=== PATIENT | female | born 1970 | race Caucasian/White ===

== ENCOUNTER 2016-05-22 07:59 | Emergency (ER) | payer SELFPAY ==
[~2016-05-22] VITALS: Ht 162.6 cm; Wt 80.0 kg
[2016-05-22 08:05] VITALS: BP 147/94; PULSE 112; RESP 24; TEMP 98.9; O2SAT 92
[2016-05-22 08:25] VITALS: BP 139/71; PULSE 110; RESP 24; TEMP 98.9; O2SAT 95
[2016-05-22] MEDS ORDERED: PLAQ200T PO (08:25)
[2016-05-22] MEDS ORDERED: TRAZ50TA12 PO (08:25)
[2016-05-22] MEDS ORDERED: ALBU.5I NEB (08:25)
--- NOTE | 2016-05-22 08:27 | PD ---
HPI Chief Complaint: Respiratory Symptoms Time Seen by Provider: 08:18 Travel History International Travel<30 days: No Contact w/Intl Traveler<30days: No Traveled to known affect area: No History of Present Illness HPI 46-year-old female complains of coughing congestion and shortness of breath. Patient states the symptoms started several weeks ago and it was for the past several days. Patient has history COPD. Patient is a smoker. Patient has been using nebulizer treatment at home. Patient states the cough is persistent and productive. Patient feeling sweaty and hot and cold at home. Patient denies any headache. Patient denies any ear ache or sore throat. Patient denies abdominal pain. Patient denies any nausea vomiting diarrhea. PFSH Past Medical History Asthma: Yes Autoimmune Disease: Yes (lupus) COPD: Yes Diminished Hearing: No Influenza Vaccination: No ?: Not Social History Alcohol Use: No Tobacco Use: Yes Allergies-Medications (Allergen,Severity, Reaction): Coded Allergies: Penicillin (Verified Allergy, Severe, Anaphylaxis, 05/22/16) Codeine (Verified Allergy, Unknown, 05/22/16) Reported Meds & Prescriptions Reported Meds & Active Scripts Active Reported Albuterol Neb (Albuterol Sulfate) 2.5 Mg/0.5 Ml Neb 2.5 Mg NEB Q6HR NEB Note: The Albuterol Sulfate Inhalation Solution is concentrated and must be diluted. Read complete instructions carefully before using. Plaquenil (Hydroxychloroquine Sulfate) 200 Mg Tab 400 Mg PO DAILY Take with food Trazodone (Trazodone HCl) 50 Mg Tab 50 Mg PO HS Review of Systems General / Constitutional: No: Fever Eyes: No: Visual changes HENT: No: Headaches Cardiovascular: No: Chest Pain or Discomfort Respiratory: Positive: Cough, Shortness of Breath Gastrointestinal: No: Abdominal Pain Genitourinary: No: Dysuria Musculoskeletal: No: Pain Skin: No Rash Neurologic: No: Weakness Psychiatric: No: Depression Endocrine: No: Polydipsia Hematologic/Lymphatic: No: Easy Bruising Physical Exam Narrative GENERAL: Well-nourished, well-developed patient. SKIN: Focused skin assessment warm/dry. HEAD: Normocephalic. EYES: No scleral icterus. No injection or drainage. TM: Clear. Throat: Nonerythematous. NECK: Supple, trachea midline. No JVD or lymphadenopathy. CARDIOVASCULAR: Regular rate and rhythm without murmurs, gallops, or rubs. RESPIRATORY: Patient has artery expiratory wheezes bilaterally. Few rhonchi at the bases. GASTROINTESTINAL: Abdomen soft, non-tender, nondistended. MUSCULOSKELETAL: No cyanosis, or edema. BACK: Nontender without obvious deformity. No CVA tenderness. Neurologic exam normal. Data Data Last Documented VS Vital Signs Date Time Temp Pulse Resp B/P Pulse Ox O2 Delivery O2 Flow Rate FiO2 05/22/16 08:25 98.9 110 24 139/71 95 Room Air Orders Chest, Single Ap (05/22/16 08:23) Albuterol-Ipratropium Neb (Duoneb Neb) (05/22/16 08:30) Dexamethasone Inj (Decadron Inj) (05/22/16 08:30) MDM Medical Decision Making Medical Screen Exam Complete: Yes Emergency Medical Condition: Yes Interpretation(s) Last Impressions Chest X-Ray 05/22/16822 Signed Impressions: Service Date/Time: Sunday, May 22, 2016 08:42 - CONCLUSION: No acute disease. Claudio Glass MD FACR Differential Diagnosis Differential diagnosis including acute exacerbation of COPD, bronchitis, pneumonia, PE, pneumothorax. Narrative Course 46-year-old female with coughing congestion and wheezing and shortness of breath. History of COPD. Albuterol with Atrovent unit dose treatment 3. Decadron 8 mg IM. 9:03 AM. Reexamination patient is feeling much better. Mild expiratory wheezes. Diagnosis Primary Impression: COPD with acute exacerbation Patient Instructions: General Instructions Additional Instructions: Continue with albuterol as needed. Follow-up with personal physician. Stop smoking. Return if worse. Med/Other Pt SpecificInfo: Prescription(s) given Scripts Azithromycin (Zithromax Z-Dioni)250 Mg [id number] Mg PO DIRECTED #1 DSPK 500 MG (2 tabs) day 1, then 1 tab days 2-5. Prov:Ryan Grider MD 05/22/16 Prednisone 20 Mg Tab20 Mg PO BID #10 TAB Prov:Ryan Grider MD 05/22/16 Ipratropium Neb 0.5 Mg/2.5 Ml Amp0.5 Mg NEB Q4HR NEB #60 NEBULE Prov:Ryan Grider MD 05/22/16 Albuterol Neb 2.5 Mg/3 Ml Neb2.5 Mg NEB Q4HR NEB #60 NEBULE While awake Prov:Ryan Grider MD 05/22/16 Albuterol 8.5 GM Inh (Proair Hfa 8.5 GM Inh)90 Mcg/Act Aer2 Puff INH Q4-6H PRN ( SHORTNESS OF BREATH) #1 INHALER 108 mcg/actuation Prov:Ryan Grider MD 05/22/16 Disposition: 01 DISCHARGE HOME Condition: Stable Ryan Grider MD May 22, 2016 08:27
[2016-05-22] MEDS ORDERED: DEXAMETHASONE SOD PHOS 4 MG/ML VIAL IM ONE (08:30)
[2016-05-22] MEDS: RESP: ALBUTEROL 2.5 MG/IPRATROPIUM 0.5 MG NEB (SCH) INH (08:31)
--- NOTE | 2016-05-22 08:56 | RADHPO ---
EXAM DATE/TIME: 05/22/2016 08:42 [facility] COMPARISON: No previous studies available for comparison. INDICATIONS : Short of breath. MEDICAL HISTORY : Chronic obstructive pulmonary disease. Lupus. Asthma. SURGICAL HISTORY : None. ENCOUNTER: Initial ACUITY: 2 weeks PAIN SCORE: 0/10 LOCATION: chest FINDINGS: A single view of the chest demonstrates the lungs to be symmetrically aerated without evidence of mas s, infiltrate or effusion. The cardiomediastinal contours are unremarkable. Osseous structures are intact. CONCLUSION: No acute disease. Claudio Glass MD FACR on May 22, 2016 at 8:53 Board Certified Radiologist. This report was verified electronically.
[2016-05-22] MEDS ORDERED: PRED20 PO (09:05)
[2016-05-22] MEDS ORDERED: ZITHTAB PO (09:05)
[2016-05-22] MEDS ORDERED: IPRA0.02 NEB (09:05)
[2016-05-22] MEDS ORDERED: ALBU0.08 NEB (09:05)
[2016-05-22] MEDS ORDERED: ALBUAER3 INH (09:05)
== END 2016-05-22 09:18 | disposition home or self-care (01) ==
LOC: PHED 07:59
DX: J44.1 Chronic obstructive pulmonary disease with (acute) exacerbation (principal); J45.909 Unspecified asthma, uncomplicated; M32.9 Systemic lupus erythematosus, unspecified; Z72.0 Tobacco use
CPT/HCPCS: 71010; 94640; 94664; 96372; 99284; J1100

== ENCOUNTER 2016-12-23 07:03 | Emergency (ER) | payer SELFPAY ==
[~2016-12-23] VITALS: Ht 162.6 cm; Wt 81.0 kg
[~2016-12-23 07:03] MED LIST: ALBU.5I NEB; ALBU0.08 NEB; ALBUAER3 INH; IPRA0.02 NEB; PLAQ200T PO; PRED20 PO; TRAZ50TA12 PO; ZITHTAB PO
[2016-12-23 07:10] VITALS: BP 162/74; PULSE 98; RESP 22; TEMP 98; O2SAT 92
[2016-12-23] MEDS ORDERED: methylPREDNISolone SOD SUCC 125 MG/2 ML VIAL IV PUSH ONE (07:15)
[2016-12-23] MEDS ORDERED: PRED20 PO (07:18)
[2016-12-23] MEDS ORDERED: ZITHTAB PO (07:18)
--- NOTE | 2016-12-23 07:18 | PD ---
HPI Chief Complaint: Respiratory Symptoms Time Seen by Provider: 07:09 Travel History International Travel<30 days: No Contact w/Intl Traveler<30days: No History of Present Illness HPI 46 yo F c/o shortness of breath increasing for past two weeks after mukund URI from daughter. + hx COPD. + smoking now. nebulizers at home minimally helpful. + pleuritic chest pain. + cough. pt denies fever. PFSH Past Medical History Asthma: Yes Autoimmune Disease: Yes (lupus) COPD: Yes Diminished Hearing: No Respiratory: Yes (COPD) ?: Not Social History Alcohol Use: No Tobacco Use: Yes Allergies-Medications (Allergen,Severity, Reaction): Coded Allergies: penicillin G (Unverified Allergy, Severe, Anaphylaxis, 12/23/16) codeine (Unverified Allergy, Unknown, 12/23/16) Reported Meds & Prescriptions Reported Meds & Active Scripts Active Albuterol Neb (Albuterol Sulfate) 2.5 Mg/0.5 Ml Neb 2.5 Mg NEB Q6HR NEB Note: The Albuterol Sulfate Inhalation Solution is concentrated and must be diluted. Read complete instructions carefully before using. Prednisone 20 Mg Tab 20 Mg PO BID Zithromax Z-Dioni (Azithromycin) 250 Mg Dspk 250 Mg PO DIRECTED 500 MG (2 tabs) day 1, then 1 tab days 2-5. Proair Hfa 8.5 GM Inh (Albuterol Sulfate) 90 Mcg/Act Aer 2 Puff INH Q4-6H PRN 108 mcg/actuation Review of Systems Except as stated in HPI: all other systems reviewed are Neg General / Constitutional: No: Fever Cardiovascular: Positive: Chest Pain or Discomfort Respiratory: Positive: Cough, Shortness of Breath, Wheezing Physical Exam Narrative GENERAL: 46 yo F, WNWD, NAD SKIN: Warm and dry. HEAD: Atraumatic. Normocephalic. EYES: Pupils equal and round. No scleral icterus. No injection or drainage. ENT: No nasal bleeding or discharge. Mucous membranes pink and moist. NECK: Trachea midline. No JVD. CARDIOVASCULAR: Tachycardia approx 95. Regular. RESPIRATORY: No accessory muscle use. Clear to auscultation. Breath sounds equal bilaterally. GASTROINTESTINAL: Abdomen soft, non-tender, nondistended. Hepatic and splenic margins not palpable. MUSCULOSKELETAL: Extremities without clubbing, cyanosis, or edema. No obvious deformities. NEUROLOGICAL: Awake and alert. No obvious cranial nerve deficits. Motor grossly within normal limits. Five out of 5 muscle strength in the arms and legs. Normal speech. PSYCHIATRIC: Appropriate mood and affect; insight and judgment normal. Data Data Last Documented VS Vital Signs Date Time Temp Pulse Resp B/P (MAP) Pulse Ox O2 Delivery O2 Flow Rate FiO2 12/23/16 09:10 12/23/16 08:09 87 20 93 Room Air 12/23/16 07:31 98.2 VS reviewed Orders Orders Iv Access Insert/Monitor (12/23/16 07:11) Electrocardiogram (12/23/16 07:11) Ecg Monitoring (12/23/16 07:11) Oximetry (12/23/16 07:11) Oxygen Administration (12/23/16 07:11) Chest, Single Ap (12/23/16 07:11) Sodium Chloride 0.9% Flush (Ns Flush) (12/23/16 07:15) Methylprednisolone So Succ Inj (Solumedr (12/23/16 07:15) Albuterol-Ipratropium Neb (Duoneb Neb) (12/23/16 07:15) Albuterol Neb (Albuterol Neb) (12/23/16 08:15) Sodium Chlor 0.9% 1000 Ml Inj (Ns 1000 M (12/23/16 08:15) Ed Discharge Order (12/23/16 08:58) MDM Medical Decision Making Medical Screen Exam Complete: Yes Emergency Medical Condition: Yes Medical Record Reviewed: Yes Differential Diagnosis COPD w exacerbation, asthma, PTX, PNA, PE Narrative Course EKG: sinus, rate 94, normal axis, normal intervals CXR: NACPD Pt has hx COPD w acute exacerbations. Three rounds Duoneb administered with subjective improvement reported Pt ambulated around pod shortly thereafter. Wheezing with desat to 88% on RA observed. Three additional albuterol nebs ordered. Pt ambulated around the pod shortly thereafter again without difficulty and o2 sat of 94% on RA observed. Pleuritic cp considered unlikely to be PE given similar prior episodes of COPD exacerbation. Diagnosis Primary Impression: COPD with acute exacerbation Med/Other Pt SpecificInfo: Prescription(s) given Scripts Albuterol Neb (Albuterol Neb) 2.5 Mg/0.5 Ml Neb 2.5 MG NEB Q6HR NEB, #30 BOX Note: The Albuterol Sulfate Inhalation Solution is concentrated and must be diluted. Read complete instructions carefully before using. Prov: Primitivo Cannon MD 12/23/16 Prednisone (Prednisone) 20 Mg Tab 20 MG PO BID, #10 TAB Prov: Primitivo Cannon MD 12/23/16 Azithromycin (Zithromax Z-Dioni) 250 Mg Dspk 250 MG PO DIRECTED for Infection, #1 DSPK 500 MG (2 tabs) day 1, then 1 tab days 2-5. Prov: Primitivo Cannon MD 12/23/16 Disposition: 01 DISCHARGE HOME Condition: Stable Primitivo Cannon MD Dec 23, 2016 07:18
[2016-12-23] MEDS: RESP: ALBUTEROL 2.5 MG/IPRATROPIUM 0.5 MG NEB (SCH) INH (07:19)
[2016-12-23 07:27] VITALS: O2SAT 92
[2016-12-23] MEDS: SODIUM CHLORIDE 0.9% FLUSH 10 ML FLUSH IVF PRN ×2 (07:30→08:15)
[2016-12-23 07:31] VITALS: BP 138/65; PULSE 93; RESP 20; TEMP 98.2; O2SAT 93
[2016-12-23 08:09] VITALS: BP 136/75; PULSE 87; RESP 20; O2SAT 93
[2016-12-23] MEDS ORDERED: SODIUM CHLOR 0.9% 1000 ML INJ 1,000 ML IV ONE (08:15)
[2016-12-23] MEDS: RESP: ALBUTEROL 2.5 MG/3 ML NEB (SCH) INH (08:15)
--- NOTE | 2016-12-23 08:38 | RADRPT ---
EXAM DATE/TIME: 12/23/2016 07:40 [facility] COMPARISON: CHEST SINGLE AP, May 22, 2016, 8:42. INDICATIONS : Short of breath, fever, cough, chest pain with deep inspiration and cough MEDICAL HISTORY : Chronic obstructive pulmonary disease. Lupus. asthma SURGICAL HISTORY : None. ENCOUNTER: Initial ACUITY: 1 week PAIN SCORE: 6/10 LOCATION: Bilateral chest FINDINGS: A single view of the chest demonstrates the lungs to be symmetrically aerated without evidence of mas s, infiltrate or effusion. The cardiomediastinal contours are unremarkable. Osseous structures are intact. CONCLUSION: 1. No acute cardiopulmonary disease. Nghia Sapp MD on December 23, 2016 at 8:35 Board Certified Radiologist. This report was verified electronically.
[2016-12-23] MEDS ORDERED: ALBU.5I NEB (09:01)
--- NOTE | 2016-12-24 08:46 | EKG ---
Date Performed: 12/23/2016 Time Performed: 07:12:56 PTAGE: 46 years EKG: Sinus rhythm NORMAL ECG INTERPRETATION BASED ON A DEFAULT AGE OF 41 YEARS NO PREVIOUS TRACING DOCTOR: Grant Avendaño Interpretating Date/Time 12/24/2016 08:44:24
== END 2016-12-23 09:16 | disposition home or self-care (01) ==
LOC: PHED 07:03
DX: J44.1 Chronic obstructive pulmonary disease with (acute) exacerbation (principal); Z72.0 Tobacco use
CPT/HCPCS: 71010; 93005; 94640; 94664; 96361; 96374; 96375; 99285; J2930; J7030; J7613

== ENCOUNTER 2017-03-16 22:04 | Inpatient (IN) | payer SELFPAY ==
[~2017-03-16] VITALS: Ht 167.6 cm; Wt 86.0 kg
[~2017-03-16 22:04] MED LIST changes: -ALBU0.08 NEB; -IPRA0.02 NEB; -PLAQ200T PO; -TRAZ50TA12 PO
[2017-03-16 22:10] VITALS: BP 144/90; PULSE 115; RESP 30; TEMP 98.4; O2SAT 88
[2017-03-16] MEDS ORDERED: RESP: ALBUTEROL 2.5 MG/IPRATROPIUM 0.5 MG NEB (PRN) ONE (22:10)
[2017-03-16] MEDS ORDERED: RESP: ALBUTEROL 2.5 MG/IPRATROPIUM 0.5 MG NEB (SCH) ONE (22:10)
--- NOTE | 2017-03-16 22:11 | PD ---
HPI Chief Complaint: shortness of breath Time Seen by Provider: 22:09 Travel History International Travel<30 days: No Contact w/Intl Traveler<30days: No Traveled to known affect area: No History of Present Illness HPI 47-year-old female came to the emergency room with history of shortness of breath that started this morning. His history of COPD and asthma. She took her inhalers but says that that did not help her at all. When she came in she was acutely short of breath and her oxygen saturation was 88% on room air. She does not require oxygen at home. No history of fever or chills. No history of chest pain. She was tachycardic. Patient is a smoker. [facility] Past Medical History Narrative Medical List of her past medical, surgical, social and family history is reviewed from the nursing note. Asthma: Yes Autoimmune Disease: Yes (lupus) COPD: Yes Diminished Hearing: No Respiratory: Yes (COPD) Social History Alcohol Use: No Tobacco Use: Yes (1PPD) Substance Use: No Allergies-Medications (Allergen,Severity, Reaction): Coded Allergies: penicillin G (Unverified Allergy, Severe, Anaphylaxis, 12/23/16) codeine (Unverified Allergy, Unknown, 12/23/16) Comments List of her allergies reviewed from the nursing note. Reported Meds & Prescriptions Reported Meds & Active Scripts Active Albuterol Neb (Albuterol Sulfate) 2.5 Mg/0.5 Ml Neb 2.5 Mg NEB Q6HR NEB Note: The Albuterol Sulfate Inhalation Solution is concentrated and must be diluted. Read complete instructions carefully before using. Proair Hfa 8.5 GM Inh (Albuterol Sulfate) 90 Mcg/Act Aer 2 Puff INH Q4-6H PRN 108 mcg/actuation Reported Trazodone (Trazodone HCl) 100 Mg Tablet 100 Mg PO HS Narrative Medication List of her home medications reviewed from the nursing note. Review of Systems Except as stated in HPI: all other systems reviewed are Neg Respiratory: Positive: Shortness of Breath Physical Exam Narrative GENERAL: Awake, alert, significant distress SKIN: Focused skin assessment warm/dry. HEAD: Atraumatic. Normocephalic. EYES: Pupils equal and round. No scleral icterus. No injection or drainage. ENT: No nasal bleeding or discharge. Mucous membranes pink and moist. NECK: Trachea midline. No JVD. CARDIOVASCULAR: Regular rate and rhythm. No murmur appreciated. RESPIRATORY: Decreased air entry bilaterally. Accessory muscles use for respiration GASTROINTESTINAL: Abdomen soft, non-tender, nondistended. Hepatic and splenic margins not palpable. MUSCULOSKELETAL: No obvious deformities. No clubbing. No cyanosis. No edema. NEUROLOGICAL: Awake and alert. No obvious cranial nerve deficits. Motor grossly within normal limits. Normal speech. PSYCHIATRIC: Appropriate mood and affect; insight and judgment normal. Data Data Last Documented VS Vital Signs Date Time Temp Pulse Resp B/P (MAP) Pulse Ox O2 Delivery O2 Flow Rate FiO2 03/16/17 23:21 98.5 114 25 142/83 (102) 95 Nasal Cannula 2.00 Orders Orders Electrocardiogram (03/16/17 22:09) Basic Metabolic Panel (Bmp) (03/16/17 22:09) Complete Blood Count With Diff (03/16/17 22:09) Chest, Single Ap (03/16/17 22:09) Ecg Monitoring (03/16/17 22:09) Iv Access Insert/Monitor (03/16/17 22:09) Oximetry (03/16/17 22:09) Oxygen Administration (03/16/17 22:09) Methylprednisolone So Succ Inj (Solumedr (03/16/17 22:15) Albuterol-Ipratropium Neb (Duoneb Neb) (03/16/17 22:15) Sodium Chloride 0.9% Flush (Ns Flush) (03/16/17 22:15) Albuterol-Ipratropium Neb (Duoneb Neb) (03/16/17 22:10) Albuterol-Ipratropium Neb (Duoneb Neb) (03/16/17 22:10) Albuterol Neb (Albuterol Neb) (03/16/17 22:45) Acetaminophen (Tylenol) (03/16/17 23:15) Methylprednisolone So Succ Inj (Solumedr (03/17/17 06:00) Budeson-Formot 160-4.5 Mcg Inh (Symbicor (03/17/17 09:00) Albuterol-Ipratropium Neb (Duoneb Neb) (03/17/17 08:00) Albuterol-Ipratropium Neb (Duoneb Neb) (03/17/17 00:00) Admit To Inpatient (03/16/17 ) Vital Signs (Adult) Q4H (03/16/17 23:53) Activity Oob Ad [place] (03/16/17 23:53) Diet Regular Basic (03/17/17 Breakfast) Sodium Chloride 0.9% Flush (Ns Flush) (03/17/17 00:00) Sodium Chloride 0.9% Flush (Ns Flush) (03/17/17 09:00) Ondansetron Inj (Zofran Inj) (03/17/17 00:00) Comprehensive Metabolic Panel (03/17/17 06:00) Complete Blood Count With Diff (03/17/17 06:00) Scd Bilateral/Knee High JADA.BID (03/16/17 23:53) Scott Bilateral/Knee High JADA.QSHIFT (03/16/17 23:55) Acetaminophen (Tylenol) (03/17/17 00:00) Morphine Inj (Morphine Inj) (03/17/17 00:00) Docusate Sodium-Senna (Bethany-Colace) (03/17/17 09:00) Magnesium Hydroxide Liq (Milk Of Magnesi (03/17/17 00:00) Sennosides (Senokot) (03/17/17 00:00) Bisacodyl Supp (Dulcolax Supp) (03/17/17 00:00) Lactulose Liq (Lactulose Liq) (03/17/17 00:00) Inpatient Certification (03/16/17 ) Admit Order (Ed Use Only) (03/16/17 23:57) Labs Laboratory Tests Test 03/16/17 22:30 White Blood Count 12.6 TH/MM3 Red Blood Count 4.79 MIL/MM3 Hemoglobin 15.0 GM/DL Hematocrit 46.2 % Mean Corpuscular Volume 96.5 FL Mean Corpuscular Hemoglobin 31.4 PG Mean Corpuscular Hemoglobin Concent 32.5 % Red Cell Distribution Width 13.4 % Platelet Count 366 TH/MM3 Mean Platelet Volume 7.4 FL Neutrophils (%) (Auto) 55.5 % Lymphocytes (%) (Auto) 19.1 % Monocytes (%) (Auto) 7.5 % Eosinophils (%) (Auto) 13.5 % Basophils (%) (Auto) 4.4 % Neutrophils # (Auto) 7.0 TH/MM3 Lymphocytes # (Auto) 2.4 TH/MM3 Monocytes # (Auto) 0.9 TH/MM3 Eosinophils # (Auto) 1.7 TH/MM3 Basophils # (Auto) 0.6 TH/MM3 CBC Comment DIFF FINAL Differential Comment Blood Urea Nitrogen 19 MG/DL Creatinine 1.20 MG/DL Random Glucose 112 MG/DL Calcium Level 8.6 MG/DL Sodium Level 139 MEQ/L Potassium Level 3.9 MEQ/L Chloride Level 104 MEQ/L Carbon Dioxide Level 27.6 MEQ/L Anion Gap 7 MEQ/L Estimat Glomerular Filtration Rate 48 ML/MIN MDM Medical Decision Making Medical Screen Exam Complete: Yes Emergency Medical Condition: Yes Medical Record Reviewed: Yes Interpretation(s) Twelve-lead EKG was reviewed by me. Normal sinus rhythm, normal axis, nonspecific ST-T wave changes, tachycardia. Heart rate of 121 bpm. Differential Diagnosis Status asthmaticus, pneumonia, acute COPD exacerbation Narrative Course 11:20 PM patient was given 3 DuoNeb sent IV Solu-Medrol as soon as she got into the emergency room. I went back and reassessed her and she was still wheezing. I have ordered for 3 to draw nebulizer. I would reassess her in a bit. 11:46 PM after reassessment patient is still wheezing. I have discussed with her that she should be admitted. Awaiting for the hospitalist to call back. Labs and chest x-ray are within normal limit Critical Care Narrative Aggregate critical care time was 45 minutes. Time to perform other separately billable procedures was not included in the critical care time. My time did not include minutes spent treating any other patients simultaneously or on activities that did not directly contribute to the patient's treatment. The services I provided to this patient were to treat and/or prevent clinically significant deterioration that could result in: Status asthmaticus, multiple bronchodilator treatments I provided critical care services requiring my management, as noted below: Chart data review, documentation time, medication orders and management, vital sign assessments/reviewing monitor data, ordering and reviewing lab tests, ordering and interpreting/reviewing x-rays and diagnostic studies, care of the patient and discussion of the patient with the admitting physicians. Procedures EKG Prior to Arrival: No Diagnosis Primary Impression: Status asthmaticus Qualified Codes: J45.52 - Severe persistent asthma with status asthmaticus Additional Impression: Hypoxia Admitting Information Admitting Physician Requests: Admit Pro,Shravanti R. MD Mar 16, 2017 22:10
[2017-03-16] MEDS: RESP: ALBUTEROL 2.5 MG/IPRATROPIUM 0.5 MG NEB (SCH) INH ×3 (22:13→22:29)
[2017-03-16 22:14] VITALS: O2SAT 88
[2017-03-16] MEDS ORDERED: SODIUM CHLORIDE 0.9% FLUSH 10 ML FLUSH IVF PRN (22:15)
[2017-03-16] MEDS ORDERED: methylPREDNISolone SOD SUCC 125 MG/2 ML VIAL IV PUSH ONE (22:15)
[2017-03-16 22:35] LABS: BASOPHIL # 0.6 TH/MM3 (0-0.2); BASOPHIL % 4.4 % (0.0-2.0); EOSINOPHIL # 1.7 TH/MM3 (0-0.4); EOSINOPHIL % 13.5 % (0.0-4.0); HEMATOCRIT 46.2 % (35.0-46.0); LYMPH % 19.1 % (9.0-44.0); LYMPHOCYTE # 2.4 TH/MM3 (1.0-4.8); MEAN CELL VOLUME 96.5 FL (80.0-100.0); MEAN CORPUSCULAR HEMOGLOBIN 31.4 PG (27.0-34.0); MEAN CORPUSCULAR HGB CONC 32.5 % (32.0-36.0); MEAN PLATELET VOLUME 7.4 FL (7.0-11.0); MONO % 7.5 % (0.0-8.0); MONOCYTE # 0.9 TH/MM3 (0-0.9); NEUT % 55.5 % (16.0-70.0); PLATELET COUNT 366 TH/MM3 (150-450); RED BLOOD COUNT 4.79 MIL/MM3 (4.00-5.30); RED CELL DISTRIBUTION WIDTH 13.4 % (11.6-17.2); WHITE BLOOD COUNT 12.6 TH/MM3 (4.0-11.0)
--- NOTE | 2017-03-16 22:36 | RADRPT ---
EXAM DATE/TIME: 03/16/2017 22:22 [facility] COMPARISON: No previous studies available for comparison. INDICATIONS : Wheezing. MEDICAL HISTORY : Chronic obstructive pulmonary disease. Lupus. Asthma SURGICAL HISTORY : None. ENCOUNTER: Initial ACUITY: 1 day PAIN SCORE: 0/10 LOCATION: Bilateral chest FINDINGS: A single view of the chest demonstrates the lungs to be symmetrically aerated without evidence of mas s, infiltrate or effusion. The cardiomediastinal contours are unremarkable. Osseous structures are intact. CONCLUSION: 1. No active disease. Blaze Wolf MD on March 16, 2017 at 22:33 Board Certified Radiologist. This report was verified electronically.
[2017-03-16 22:46] LABS: BICARBONATE 27.6 MEQ/L (21.0-32.0); CALCIUM 8.6 MG/DL (8.5-10.1)
[2017-03-16 22:50] LABS: CREATININE 1.2 MG/DL (0.50-1.00)
[2017-03-16] MEDS: RESP: ALBUTEROL 2.5 MG/3 ML NEB (SCH) INH ×3 (22:57→23:17)
[2017-03-16] MEDS ORDERED: ACETAMINOPHEN 325 MG TAB PO ONE (23:15)
[2017-03-16 23:21] VITALS: BP 142/83; PULSE 114; RESP 25; TEMP 98.5; O2SAT 95
[2017-03-16] MEDS ORDERED: TRAZ100T10 PO (23:56)
[2017-03-17] VITALS (13 sets, daily range): BP systolic 119–140; BP diastolic 69–78; PULSE 100–119; RESP 16–22; TEMP 96.8–98.5; O2SAT 91–96
[2017-03-17] MEDS ORDERED: SENNOSIDES 8.6 MG TAB PO PRN
[2017-03-17] MEDS ORDERED: RESP: ALBUTEROL 2.5 MG/IPRATROPIUM 0.5 MG NEB (PRN) NEB
[2017-03-17] MEDS ORDERED: ONDANSETRON HCL 4 MG/2 ML VIAL IVP PRN
[2017-03-17] MEDS ORDERED: LACTULOSE SYRUP 20 GM/30 ML CUP PO PRN
[2017-03-17] MEDS ORDERED: BISACODYL 10 MG SUPP RECTAL PRN
[2017-03-17] MEDS ORDERED: SODIUM CHLORIDE 0.9% FLUSH 10 ML FLUSH IV FLUSH PRN
[2017-03-17] MEDS ORDERED: MAGNESIUM HYDROXIDE SUSP 30 ML CUP PO PRN
[2017-03-17] MEDS ORDERED: MORPHINE SULFATE 2 MG/ML INJ IV PUSH PRN
[2017-03-17] MEDS: ACETAMINOPHEN 325 MG TAB PO PRN ×2 (01:01→19:55)
[2017-03-17] MEDS ORDERED: traZODone HCL 100 MG TAB PO ONE (02:00)
[2017-03-17] MEDS: methylPREDNISolone SOD SUCC 40 MG/1 ML VIAL IV PUSH SCH ×3 (05:51→17:06)
[2017-03-17 06:56] LABS: AUTOMATED NEUTROPHIL # 9.3 TH/MM3 (1.8-7.7); BASOPHIL # 0.1 TH/MM3 (0-0.2); BASOPHIL % 0.9 % (0.0-2.0); EOSINOPHIL % 0.3 % (0.0-4.0); HEMATOCRIT 43.8 % (35.0-46.0); HEMOGLOBIN 14.2 GM/DL (11.6-15.3); LYMPH % 4.5 % (9.0-44.0); LYMPHOCYTE # 0.4 TH/MM3 (1.0-4.8); MEAN CELL VOLUME 97.3 FL (80.0-100.0); MEAN CORPUSCULAR HEMOGLOBIN 31.4 PG (27.0-34.0); MEAN CORPUSCULAR HGB CONC 32.3 % (32.0-36.0); MEAN PLATELET VOLUME 8.3 FL (7.0-11.0); MONO % 0.5 % (0.0-8.0); NEUT % 93.8 % (16.0-70.0); PLATELET COUNT 284 TH/MM3 (150-450); RED BLOOD COUNT 4.51 MIL/MM3 (4.00-5.30); RED CELL DISTRIBUTION WIDTH 13.4 % (11.6-17.2); WHITE BLOOD COUNT 9.8 TH/MM3 (4.0-11.0)
[2017-03-17 07:10] LABS: CHLORIDE 105 MEQ/L (98-107); SODIUM (NA) 137 MEQ/L (136-145)
[2017-03-17 07:16] LABS: ALBUMIN 3.3 GM/DL (3.4-5.0); BICARBONATE 21.8 MEQ/L (21.0-32.0); BLOOD UREA NITROGEN 18 MG/DL (7-18); GLUCOSE,RANDOM 157 MG/DL (74-106)
[2017-03-17 07:17] LABS: CALCIUM 8.9 MG/DL (8.5-10.1)
[2017-03-17 07:18] LABS: ALT (GPT) 32 U/L (10-53); AST (GOT) 20 U/L (15-37); CREATININE 0.95 MG/DL (0.50-1.00); GLOMERULAR FILTRATION RATE 63 ML/MIN (>89)
[2017-03-17 07:20] LABS: TOTAL PROTEIN 7.4 GM/DL (6.4-8.2)
[2017-03-17 07:21] LABS: ALKALINE PHOSPHATASE 87 U/L (45-117)
[2017-03-17 07:22] LABS: TOTAL BILIRUBIN ADULT 0.4 MG/DL (0.2-1.0)
[2017-03-17] MEDS: SODIUM CHLORIDE 0.9% FLUSH 10 ML FLUSH IV FLUSH SCH ×2 (08:45→21:52)
[2017-03-17] MEDS: BUDESONIDE-FORMOTEROL 160/4.5 MCG INHALER INH SCH ×2 (08:47→21:51)
[2017-03-17] MEDS: DOCUSATE SODIUM 50 MG/SENNA 8.6 MG TAB PO SCH ×2 (08:52→21:00)
[2017-03-17] MEDS ORDERED: methylPREDNISolone SOD SUCC 125 MG/2 ML VIAL IV ONE (09:00)
[2017-03-17] MEDS ORDERED: PNEUMOCOCCAL POLYVALENT INJ 25 MCG/0.5 ML SYR IM ONE (09:00)
--- NOTE | 2017-03-17 09:16 | HHI.HP ---
[facility] Primary Care Physician Non-Staff Admission Diagnosis status asthmaticus, hypoxia Diagnoses: Chief Complaint: Shortness of breath Travel History International Travel<30 Days: No Contact w/Intl Traveler <30 Da: No Traveled to Known Affected Are: No History of Present Illness 47 show white female being of a for acute hypoxic respiratory failure secondary to asthma exacerbation/COPD exacerbation. Patient states she was in her usual state of health until about yesterday when she began experiencing worsening of her chronic shortness of breath and her chronic cough. She reports having a new headache. She did notice that her oxygen saturations at a home pulse ox probe was in the 80s. She started taking her nebulizers frequently as possible about every 4 hours and says that it would just keep her symptoms at bay but due to the failed of ultimate recovery this prompted her to come to the emergency department. Patient denies any chest pain. Patient did receive steroids and oxygen supplementation starting from the emergency department. Social history: Patient states that she has significant issues with seeing physicians as an outpatient due to lack of insurance. Finally got to start seeing a PCP. Patient states she used to be prescribed plaquenil when she had insurance. Says she stopped smoking 7 weeks ago. Denies drinking or illicit drug use. No significant family history per the patient. Review of Systems Except as stated in HPI: all other systems reviewed are Neg Past Family Social History Past Medical History Asthma plus COPD plus lupus NO hx of PE, or DVT Allergies: Coded Allergies: penicillin G (Unverified Allergy, Severe, Anaphylaxis, 12/23/16) codeine (Unverified Allergy, Unknown, 12/23/16) Physical Exam Vital Signs Vital Signs Date Time Temp Pulse Resp B/P (MAP) Pulse Ox O2 Delivery O2 Flow Rate FiO2 03/17/17 07:50 97.3 104 20 119/70 (86) 96 03/17/17 06:45 92 Nasal Cannula 2.00 03/17/17 04:00 97.2 100 20 128/76 (93) 94 03/17/17 00:59 97.6 106 22 128/78 (95) 96 03/17/17 00:35 98.4 97 22 132/75 (94) 94 Nasal Cannula 2.00 03/17/17 00:24 98.5 110 22 135/72 (93) 94 Nasal Cannula 2.00 03/17/17 00:00 94 Nasal Cannula 2.00 03/16/17 23:21 98.5 114 25 142/83 (102) 95 Nasal Cannula 2.00 03/16/17 23:20 94 Room Air 03/16/17 22:14 88 Room Air 03/16/17 22:10 98.4 115 30 144/90 (108) 88 Physical Exam VS: afebrile GENERAL: Middle-aged white female, well-nourished, lying in bed, no acute distress SKIN: Warm and dry. EYES: No scleral icterus. No injection or drainage. ENT: No nasal bleeding or discharge. Mucous membranes pink and moist. Nasal cannula and nose CARDIOVASCULAR: Regular rate and rhythm. no murmurs RESPIRATORY: No accessory muscle use. Very minimal wheezing and bilateral feels GASTROINTESTINAL: Abdomen soft, non-tender, nondistended. Hepatic and splenic margins not palpable. Extremities: No clubbing, cyanosis, or edema. No obvious deformities. MUSCULOSKELETAL: grossly intact ROM with 5/5 strength in upper and lower extremities proximally; adequate muscle bulk and tone for age and habitus NEUROLOGICAL: Awake and alert. No obvious cranial nerve deficits. No facial droop nor slurred speech noted. PSYCHIATRIC: Appropriate mood and affect; insight and judgment normal. Laboratory Laboratory Tests Test 03/16/17 22:30 03/17/17 06:16 White Blood Count 12.6 9.8 Red Blood Count 4.79 4.51 Hemoglobin 15.0 14.2 Hematocrit 46.2 43.8 Mean Corpuscular Volume 96.5 97.3 Mean Corpuscular Hemoglobin 31.4 31.4 Mean Corpuscular Hemoglobin Concent 32.5 32.3 Red Cell Distribution Width 13.4 13.4 Platelet Count 366 284 Mean Platelet Volume 7.4 8.3 Neutrophils (%) (Auto) 55.5 93.8 Lymphocytes (%) (Auto) 19.1 4.5 Monocytes (%) (Auto) 7.5 0.5 Eosinophils (%) (Auto) 13.5 0.3 Basophils (%) (Auto) 4.4 0.9 Neutrophils # (Auto) 7.0 9.3 Lymphocytes # (Auto) 2.4 0.4 Monocytes # (Auto) 0.9 0.0 Eosinophils # (Auto) 1.7 0.0 Basophils # (Auto) 0.6 0.1 CBC Comment DIFF FINAL DIFF FINAL Differential Comment Blood Urea Nitrogen 19 18 Creatinine 1.20 0.95 Random Glucose 112 157 Calcium Level 8.6 8.9 Sodium Level 139 137 Potassium Level 3.9 4.4 Chloride Level 104 105 Carbon Dioxide Level 27.6 21.8 Anion Gap 7 10 Estimat Glomerular Filtration Rate 48 63 Total Protein 7.4 Albumin 3.3 Alkaline Phosphatase 87 Aspartate Amino Transf (AST/SGOT) 20 Alanine Aminotransferase (ALT/SGPT) 32 Total Bilirubin 0.4 Result Diagram: 03/17/17 0616 03/17/1716 Imaging Last Impressions Chest X-Ray 03/16/172208 Signed Impressions: Service Date/Time: Thursday, March 16, 2017 22:22 - CONCLUSION: 1. No active disease. MD Gris Sheltoni VTE Risk Assessment Caprini VTE Risk Assessment: No/Low Risk (score <= 1) Caprini Risk Assessment Model Point Value = 1 Point Value = 2 Point Value = 3 Point Value = 5 Age 41-60 Minor surgery BMI > 25 kg/m2 Swollen legs Varicose veins or History of unexplained or recurrent spontaneous Oral contraceptives or hormone replacement Sepsis (< 1 month) Serious lung disease, including pneumonia (< 1 month) Abnormal pulmonary function Acute myocardial infarction Congestive heart failure (< 1 month) History of inflammatory bowel disease Medical patient at bed rest Age 61-74 Arthroscopic surgery Major open surgery (> 45 min) Laparoscopic surgery (> 45 min) Malignancy Confined to bed (> 72 hours) Immobilizing plaster cast Central venous access Age >= 75 History of VTE Family history of VTE Factor V Leiden Prothrombin [id number] Lupus anticoagulant Anticardiolipin antibodies Elevated serum homocysteine Heparin-induced thrombocytopenia Other congenital or acquired thrombophilia Stroke (< 1 month) Elective arthroplasty Hip, pelvis, or leg fracture Acute spinal cord injury (< 1 month) Prophylaxis Regimen Total Risk Factor Score Risk Level Prophylaxis Regimen 0-1 Low Early ambulation 2 Moderate Order ONE of the following: *Sequential Compression Device (SCD) *Heparin 5000 units SQ BID 3-4 Higher Order ONE of the following medications: *Heparin 5000 units SQ TID *Enoxaparin/Lovenox 40 mg SQ daily (WT < 150 kg, CrCl > 30 mL/min) *Enoxaparin/Lovenox 30 mg SQ daily (WT < 150 kg, CrCl > 10-29 mL/min) *Enoxaparin/Lovenox 30 mg SQ BID (WT < 150 kg, CrCl > 30 mL/min) AND/OR *Sequential Compression Device (SCD) 5 or more Highest Order ONE of the following medications: *Heparin 5000 units SQ TID (Preferred with Epidurals) *Enoxaparin/Lovenox 40 mg SQ daily (WT < 150 kg, CrCl > 30 mL/min) *Enoxaparin/Lovenox 30 mg SQ daily (WT < 150 kg, CrCl > 10-29 mL/min) *Enoxaparin/Lovenox 30 mg SQ BID (WT < 150 kg, CrCl > 30 mL/min) AND *Sequential Compression Device (SCD) Assessment and Plan Assessment and Plan Acute hypoxic respiratory failure secondary to asthma/COPD exacerbation - High-dose steroids and oxygen supplementation as needed - Rocío leonards - I independently review the chest x-ray which appears to be clear with no acute infiltrates Continue home trazodone SCDs Physician Certification 2 Midnight Certification Type: Admission for Inpatient Services Order for Inpatient Services The services are ordered in accordance with Medicare regulations or non- Medicare payer requirements, as applicable. In the case of services not specified as inpatient-only, they are appropriately provided as inpatient services in accordance with the 2-midnight benchmark. Estimated LOS (days): 2 2 days is the estimated time the patient will need to remain in the hospital, assuming treatment plan goals are met and no additional complications. Post-Hospital Plan: Home Mohit Sandoval MD Mar 17, 2017 09:16
[2017-03-17] MEDS: RESP: ALBUTEROL 2.5 MG/IPRATROPIUM 0.5 MG NEB (SCH) NEB ×4 (10:37→20:06)
[2017-03-17] MEDS ORDERED: methylPREDNISolone SOD SUCC 125 MG/2 ML VIAL IV PUSH ONE ×2 (14:00→18:00)
--- NOTE | 2017-03-17 14:40 | EKG ---
Date Performed: 03/16/2017 Time Performed: 22:11:49 PTAGE: 47 years EKG: SINUS TACHYCARDIA ABNORMAL RHYTHM ECG PREVIOUS TRACING 12/23/16 Rate has increased since prior tracing. DOCTOR: Nickolas Acuna Interpretating Date/Time 03/17/2017 14:39:35
[2017-03-17] MEDS: methylPREDNISolone SOD SUCC 125 MG/2 ML VIAL IV PUSH SCH ×2 (19:47→21:57)
[2017-03-17] MEDS: RESP: ACETYLCYSTEINE 10% 10 ML NEB NEB SCH (20:00)
[2017-03-17] MEDS ORDERED: traZODone HCL 100 MG TAB PO SCH (21:00)
[2017-03-17] MEDS ORDERED: methylPREDNISolone SOD SUCC 125 MG/2 ML VIAL IV PUSH SCH (22:00)
[2017-03-18 00:04] VITALS: BP 131/66; PULSE 113; RESP 18; TEMP 97.9; O2SAT 95
[2017-03-18] MEDS: RESP: ALBUTEROL 2.5 MG/IPRATROPIUM 0.5 MG NEB (SCH) NEB ×2 (07:21→11:11)
[2017-03-18] MEDS: RESP: ACETYLCYSTEINE 10% 10 ML NEB NEB SCH ×2 (07:21→11:13)
[2017-03-18 07:24] VITALS: O2SAT 94
[2017-03-18 07:50] VITALS: BP 93/54; PULSE 67; RESP 20; TEMP 96.9; O2SAT 95
[2017-03-18 07:51] VITALS: BP 121/67; PULSE 119; RESP 20; TEMP 96.7; O2SAT 94
[2017-03-18] MEDS: BUDESONIDE-FORMOTEROL 160/4.5 MCG INHALER INH SCH (08:35)
[2017-03-18] MEDS: SODIUM CHLORIDE 0.9% FLUSH 10 ML FLUSH IV FLUSH SCH (08:36)
[2017-03-18] MEDS: methylPREDNISolone SOD SUCC 125 MG/2 ML VIAL IV PUSH SCH (08:36)
[2017-03-18] MEDS: DOCUSATE SODIUM 50 MG/SENNA 8.6 MG TAB PO SCH (08:36)
[2017-03-18] MEDS ORDERED: PRED10PA PO (09:17)
[2017-03-18] MEDS ORDERED: ALBUAER3 INH (09:17)
[2017-03-18] MEDS ORDERED: Budeson-Formot 160-4.5 Mcg Inh INH (09:17)
--- NOTE | 2017-03-18 09:17 | HHI.DCPOC ---
Discharge Care Plan Diagnosis: (1) Asthma exacerbation (2) Hypoxia Goals to Promote Your Health * To prevent worsening of your condition and complications * To maintain your health at the optimal level Directions to Meet Your Goals Take your medications as prescribed Follow your dietary instruction Follow activity as directed Keep your appointments as scheduled Take your immunizations and boosters as scheduled If your symptoms worsen call your PCP, if no PCP go to Urgent Care Center or Emergency Room Smoking is Dangerous to Your Health. Avoid second hand smoke Call the 24-hour hour crisis hotline for domestic abuse at Mohit Sandoval MD Mar 18, 2017 09:17
[2017-03-18] MEDS ORDERED: ALBU0.08 NEB (10:13)
== END 2017-03-18 11:39 | disposition home or self-care (01) | DRG 189 ==
LOC: PHED 22:04 → PHEDA 23:58 → PH3A 03-17 00:40
PROVIDERS: ADMIT Hospitalist; ATTEND Hospitalist
DX: J96.01 Acute respiratory failure with hypoxia (principal); J44.1 Chronic obstructive pulmonary disease with (acute) exacerbation; M32.9 Systemic lupus erythematosus, unspecified; J45.901 Unspecified asthma with (acute) exacerbation; Z23 Encounter for immunization; Z87.891 Personal history of nicotine dependence
CPT/HCPCS: 71045; 80048; 80053; 85025; 87804; 90471; 90732; 93005; 94640; 94664; 96374; G0009; J2920; J2930; J7608; J7613